=== PATIENT | male | born 1945 | race Hispanic/Latino ===

== ENCOUNTER 2024-06-24 17:14 | Emergency (ER) | payer MEDICARE ==
[~2024-06-24] VITALS: Ht 167.6 cm; Wt 80.7 kg
[2024-06-24 17:44] VITALS: TEMP 98
[2024-06-24] MEDS: KETOROLAC TROMETHAMINE 30 MG/ML VIAL IM STA (18:29)
[2024-06-24 19:00] VITALS: PULSE 76; RESP 18
[2024-06-24 20:42] LABS: BASOPHILS % 0.4 % (0.0-1.0); EOSINOPHILS % 0.5 % (0.0-6.0); HEMOGLOBIN 11.5 g/dL (14.0-18.0); LYMPHOCYTES # (AUTO) 0.7 (1.0-3.2); MEAN CORPUSCULAR HEMOGLOBIN 31.3 pg (28-32); MEAN CORPUSCULAR HGB CONC 33.8 g/dL (31-35); MEAN CORPUSCULAR VOLUME 92.6 fL (81-99); MONOCYTES # (AUTO) 0.8 (0.2-0.8); MONOCYTES % 10.7 % (4.4-11.3); NEUTROPHILS % 79.1 % (38.7-80.0); PLATELET COUNT 120 x10e3/uL (140-360); RED BLOOD COUNT 3.67 x10e6/uL (4.3-5.7); RED CELL DISTRIBUTION WIDTH 12.9 % (11.7-14.4); WHITE BLOOD COUNT 7.54 x10e3/uL (4.8-10.8)
[2024-06-24 21:05] LABS: ALBUMIN 3.9 g/dL (3.5-5.0); ALBUMIN/GLOBULIN RATIO 1.1 (0.8-2.0); ANION GAP 14.8 mmol/L (8-16); BILIRUBIN,TOTAL 0.7 mg/dL (0.2-1.2); CALCIUM 8.9 mg/dL (8.4-10.2); CREATININE, SERUM 1.09 mg/dL (0.72-1.25); POTASSIUM 3.8 mmol/L (3.5-5.1); TOTAL PROTEIN 7.5 g/dL (6.5-8.1)
[2024-06-24] MEDS: SODIUM CHLORIDE 0.9% 1000ML 1,000 ML IV STA (21:09)
[2024-06-24 21:12] LABS: TROPONIN I 0.007 ng/mL (0-0.300)
[2024-06-24 21:46] LABS: BILIRUBIN,URINE SMALL (NEGATIVE); CLARITY,URINE SL CLOUDY (CLEAR); COLOR,URINE YELLOW (YELLOW); GLUCOSE, URINE NEGATIVE (NEGATIVE); KETONES,URINE 1+ (NEGATIVE); LEUKOCYTE ESTERASE ,URINE NEGATIVE (NEGATIVE); NITRITE,URINE NEGATIVE (NEGATIVE); PH,URINE 5.5 (5 - 7); PROTEIN,URINE DIPSTICK 1+ (NEGATIVE); URINE UROBILINOGEN 1 mg/dL (0.2 - 1)
[2024-06-24 21:53] LABS: AMORPHOUS SEDIMENT,URINE FEW (FEW); BACTERIA,URINE MODERATE /HPF; WBC,URINE (MAN) 0-5 /HPF (0-5)
[2024-06-24 22:33] VITALS: BP 127/65; PULSE 84; RESP 18; TEMP 98.3; O2SAT 98
== END 2024-06-24 22:20 | disposition home or self-care (01) ==
LOC: ER 17:28
DX: M54.2 Cervicalgia (principal); R53.1 Weakness; I10 Essential (primary) hypertension; E11.9 Type 2 diabetes mellitus without complications; E78.5 Hyperlipidemia, unspecified; Z11.52 Encounter for screening for COVID-19; Z95.0 Presence of cardiac pacemaker
CPT/HCPCS: 36415; 70450; 71045; 80053; 81001; 82550; 83690; 83880; 84484; 85025; 87400; 93005; 99284; J1885; J7030; U0002

== ENCOUNTER → 2025-03-05 | Outpatient (REF) | payer MEDICARE | LOC: US 09:18 | PROVIDERS: ATTEND Otolaryngology | DX: D49.0 Neoplasm of unspecified behavior of digestive system (principal); K11.8 Other diseases of salivary glands | CPT/HCPCS: 10005; 88172; 88173; 88305 ==

== ENCOUNTER 2025-05-04 06:00 | Observation (INO) | payer MEDICARE ==
[2025-04-28 12:53] LABS: BASOPHILS # (AUTO) 0.1 (0.0-0.1); BASOPHILS % 1.3 % (0.0-1.0); EOSINOPHILS # (AUTO) 0.5 (0.0-0.4); HEMATOCRIT 36.5 % (38.2-49.6); HEMOGLOBIN 12.3 g/dL (14.0-18.0); LYMPHOCYTES # (AUTO) 1.1 (1.0-3.2); LYMPHOCYTES % 23.6 % (18.0-39.1); MEAN CORPUSCULAR HEMOGLOBIN 30.7 pg (28-32); MEAN CORPUSCULAR HGB CONC 33.7 g/dL (31-35); MONOCYTES # (AUTO) 0.4 (0.2-0.8); MONOCYTES % 9.8 % (4.4-11.3); NEUTROPHILS # (AUTO) 2.5 (2.1-6.9); NEUTROPHILS % 55.1 % (38.7-80.0); PLATELET COUNT 156 x10e3/uL (140-360); RED BLOOD COUNT 4.01 x10e6/uL (4.3-5.7); RED CELL DISTRIBUTION WIDTH 12.8 % (11.7-14.4); WHITE BLOOD COUNT 4.49 x10e3/uL (4.8-10.8)
[2025-04-28 13:40] LABS: ANION GAP 15.3 mmol/L (8-16); CALCIUM 9.2 mg/dL (8.4-10.2); CREATININE, SERUM 0.97 mg/dL (0.72-1.25); POTASSIUM 4.3 mmol/L (3.5-5.1)
[~2025-05-04 06:00] MED LIST: ASPIRIN81 MG PO; CLOPIDOGREL75 MG PO; FLOMAX0.4 MG PO; LOSARTAN POTASS25 MG PO; METFORMIN HCL500 MG PO; METOPROLOL; NIFEDIPINE10 MG PO; PRAVASTATIN SOD40 MG
[2025-05-04] MEDS ORDERED: FENTANYL CITRATE/PF 100MCG/2 ML INJ ONE ×2 (07:23→09:23)
[2025-05-04] MEDS: LACTATED RINGER'S 1,000 ML ONE (07:23)
[2025-05-04] MEDS ORDERED: SUCCINYLCHOLINE CHLORIDE 20 MG/ML 10ML VIAL ONE (07:23)
[2025-05-04] MEDS ORDERED: LIDOCAINE HCL 2% LOCAL INJ 5 ML SDV VIAL INJ ONE (07:23)
[2025-05-04] MEDS ORDERED: PROPOFOL IV EMULSION 10 MG/ML 20 ML VIAL ONE ×2 (07:24→10:09)
[2025-05-04] MEDS ORDERED: DEXAMETHASONE SOD PHOS INJ 4 MG/ML SDV ONE (08:45)
[2025-05-04] MEDS ORDERED: ONDANSETRON HCL INJ 2MG/ML 2ML 2 MG/ML VIAL ONE (08:45)
[2025-05-04] MEDS ORDERED: EPHEDRINE SULFATE INJ 50 MG/ML VIAL ONE (08:51)
[2025-05-04] MEDS ORDERED: ACETAMINOPHEN 1000 MG/100 ML 100 ML IV ONE (09:00)
[2025-05-04] MEDS ORDERED: HYDROMORPHONE 2MG/ML ONE (09:40)
[2025-05-04] MEDS ORDERED: ONDANSETRON HCL INJ 2MG/ML 2ML 2 MG/ML VIAL IV PRN (12:45)
[2025-05-04] MEDS ORDERED: HYDROCODONE/APAP 5MG-325MG TAB PO PRN (13:00)
[2025-05-04] MEDS ORDERED: ARTIFICIAL TEARS (OPTH) 15 ML BTL OD SCH ×2 (13:00→14:30)
[2025-05-04] MEDS: HYDROCODONE/APAP 5MG-325MG TAB PO PRN (14:26)
[2025-05-04] MEDS: SOD CHL 0.45%/POT CHL 20MEQ 1,000 ML IV SCH (14:27)
[2025-05-04 15:00] VITALS: BP 136/61; PULSE 80; RESP 18; TEMP 97.5; O2SAT 97
[2025-05-04] MEDS ORDERED: SODIUM CHLORIDE FLUSH 10 ML SYR INJ PRN (15:00)
[2025-05-04 15:52] VITALS: BP 132/69; PULSE 65; RESP 13; TEMP 97; O2SAT 95
[2025-05-04] MEDS ORDERED: SEVOFLURANE INHAL SOLN 250 ML PEN BTL ONE (16:14)
[2025-05-04 20:00] VITALS: BP 132/66; PULSE 84; RESP 18; TEMP 97.6; O2SAT 99
[2025-05-04 21:00] VITALS: BP 132/66; PULSE 84; RESP 18; TEMP 97.6; O2SAT 99
[2025-05-04] MEDS: PRAVASTATIN 20 MG TAB PO SCH (21:23)
[2025-05-04] MEDS: TAMSULOSIN HCL 0.4 MG CAP PO SCH (21:24)
[2025-05-04] MEDS: EYE LUBRICANT OPTH OINT 3.5GM TUBE OP SCH (21:26)
[2025-05-05] VITALS: BP 111/57; PULSE 80; RESP 16; TEMP 97.3; O2SAT 96
[2025-05-05 04:00] VITALS: BP 117/56; PULSE 72; RESP 18; TEMP 97.5; O2SAT 100
[2025-05-05 07:20] VITALS: BP 135/59; PULSE 67; RESP 17; TEMP 97.8; O2SAT 98
[2025-05-05 08:49] VITALS: BP 135/59; PULSE 67; RESP 17; TEMP 97.8; O2SAT 98
[2025-05-05] MEDS: ASPIRIN 81 MG CHEW TAB PO SCH (09:00)
[2025-05-05] MEDS: METFORMIN HCL 500 MG TAB PO SCH (09:11)
[2025-05-05] MEDS: NIFEDIPINE CR 30 MG TAB PO SCH (09:11)
[2025-05-05 09:12] VITALS: BP 135/59
[2025-05-05] MEDS: LOSARTAN POTASSIUM 25 MG TAB PO SCH (09:12)
== END 2025-05-05 11:37 | disposition home or self-care (01) ==
LOC: OR 06:00 → PACU V 12:03 → MED/SURG 13:47
PROVIDERS: ADMIT Otolaryngology; ATTEND Otolaryngology
DX: D11.0 Benign neoplasm of parotid gland (principal); E11.9 Type 2 diabetes mellitus without complications; I10 Essential (primary) hypertension; E78.00 Pure hypercholesterolemia, unspecified; I49.9 Cardiac arrhythmia, unspecified; N40.0 Benign prostatic hyperplasia without lower urinary tract symptoms; Z79.84 Long term (current) use of oral hypoglycemic drugs; Z79.02 Long term (current) use of antithrombotics/antiplatelets; Z01.810 Encounter for preprocedural cardiovascular examination; Z01.812 Encounter for preprocedural laboratory examination; Z01.818 Encounter for other preprocedural examination
CPT/HCPCS: 36415 ×3; 42415; 71046; 80048; 82948 ×2; 85025; 88307; 93005; C1713; G0378 ×2; J0131; J0330; J0690; J1100; J1171; J2003; J2405; J2704; J3010; J7121; 88304